=== PATIENT | female | born 1990 | race Caucasian/White ===

== ENCOUNTER 2018-04-05 20:43 | Emergency (ER) | payer MEDICAID ==
[~2018-04-05] VITALS: Ht 165.1 cm; Wt 54.4 kg
--- NOTE | 2018-04-05 21:40 | NUR ---
Dr. Gutierrez at bedside for [facility]SE.
[2018-04-05] MEDS ORDERED: IBUPROFEN 600 MG TABLET PO ONE (22:00)
[2018-04-05] MEDS ORDERED: ACETAMINOPHEN 325 MG TABLET PO ONE (22:00)
[2018-04-05] MEDS ORDERED: IBUPROFEN 600 MG TABLET ONE (22:08)
[2018-04-05] MEDS ORDERED: ACETAMINOPHEN 325 MG TABLET ONE (22:08)
--- NOTE | 2018-04-05 22:10 | NUR ---
Pt refused medications, reports they just want to leave and go somewhere else, requesting the discharge paperwork. notified.
--- NOTE | 2018-04-05 22:14 | NUR ---
Patient discharged to home in stable conditon. Written and verbal after care instructions given. Patient verbalizes understanding of instructions. Patient ambulated out of ER with steady gait, no acute signs of distress, VSS, all belongings taken.
[2018-04-05 22:23] VITALS: BP 117/80
== END 2018-04-05 22:15 | disposition home or self-care (01) ==
LOC: ER 20:52
DX: R51 Headache (principal); J32.9 Chronic sinusitis, unspecified
CPT/HCPCS: 99281; A4663

== ENCOUNTER 2021-05-12 02:56 | Emergency (ER) | payer MEDICAID ==
[~2021-05-12] VITALS: Ht 170.2 cm; Wt 54.4 kg
[2021-05-12] MEDS ORDERED: IV NORMAL SALINE 1000 ML BAG IV ONE ×2 (03:30→04:15)
[2021-05-12 03:47] LABS: HEMATOCRIT 35.4 % (31.2-41.9); MEAN CORPUSCULAR HEMOGLOBIN 28.4 uug (24.7-32.8); MEAN CORPUSCULAR VOLUME 85.9 fL (75.5-95.3); PLATELET COUNT (AUTO) 228 K/uL (179-408)
[2021-05-12 04:00] LABS: ALANINE AMINOTRANSFERASE 19 U/L (14-59); ALKALINE PHOSPHATASE 37 U/L (50-136); ASPARTATE AMINOTRANSFERASE 9 U/L (15-37); BILIRUBIN,DIRECT 0.1 mg/dL (0.0-0.2); BILIRUBIN,TOTAL 0.5 mg/dL (0.2-1.0); CARBON DIOXIDE 26 mmol/L (21-32); CHLORIDE 103 mmol/L (98-107); CREATININE 0.5 mg/dL (0.6-1.3); GLUCOSE 83 mg/dL (74-106); POTASSIUM 3.7 mmol/L (3.5-5.1); TOTAL PROTEIN, SERUM 6.6 g/dL (6.4-8.2); UREA NITROGEN, BLOOD 14 mg/dL (7-18)
[2021-05-12 04:28] LABS: *BILIRUBIN,URIN NEGATIVE (NEGATIVE); *BLOOD, URINE NEGATIVE (NEGATIVE); *COLOR,URINE YELLOW (YELLOW); *KETONES,URINE NEGATIVE (NEGATIVE); *UROBILINOGEN,URINE 0.2 E.U./dl (NORMAL); LEUKOCYTE ESTERASE ,URINE TRACE (NEGATIVE); NITRITE, URINE NEGATIVE (NEGATIVE); UGLUCOSE NEGATIVE (NEGATIVE)
[2021-05-12 04:36] LABS: *CLARITY,URINE HAZY (CLEAR)
[2021-05-12 04:38] LABS: BACTERIA,URINE FEW /HPF (NONE SEEN); RBC,URINE 0-3 /HPF (0-3); SQUAMOUS EPITHELIAL CELL,UR MANY /HPF (NONE SEEN)
[2021-05-12 04:40] LABS: *URINE HCG, QUAL NEGATIVE (NEGATIVE)
[2021-05-12] MEDS ORDERED: CEFTRIAXONE 1 G in IV DEXTROSE 5% 50 ML IV ONE (05:00)
[2021-05-12] MEDS ORDERED: METRONIDAZOLE 500 MG/NS 100 ML PIGGYBACK IV ONE (05:00)
[2021-05-12] MEDS ORDERED: DOXYCYCLINE HYCLATE 100 MG TABLET PO ONE (05:00)
[2021-05-12] MEDS ORDERED: KETOROLAC TROMETHAMINE 30 MG INJ IVP ONE (05:00)
[2021-05-12] MEDS ORDERED: KETOROLAC TROMETHAMINE 30 MG INJ ONE (05:07)
[2021-05-12] MEDS ORDERED: DOXYCYCLINE HYCLATE 100 MG TABLET ONE (05:17)
[2021-05-12] MEDS ORDERED: CEFTRIAXONE /D5W 50ML IVPB **ER PYXIS IV ONE (05:18)
[2021-05-12] MEDS ORDERED: METRONIDAZOLE 500 MG/NS 100ML 100 ML IV ONE (05:18)
[2021-05-12] MEDS ORDERED: METR-147 PO (05:59)
[2021-05-12] MEDS ORDERED: DOXY100T2 PO (05:59)
[2021-05-12] MEDS ORDERED: ONDA4TAB11 PO (06:10)
[2021-05-12] MEDS ORDERED: PANTOPRAZOLE SODIUM 40 MG VIAL ONE (06:14)
[2021-05-12] MEDS ORDERED: ONDANSETRON 4 MG/2 ML VIAL ONE (06:14)
[2021-05-12] MEDS ORDERED: ONDANSETRON 4 MG/2 ML VIAL IV ONE (06:15)
[2021-05-12] MEDS ORDERED: PANTOPRAZOLE SODIUM 40 MG VIAL IV ONE (06:15)
[2021-05-12 07:04] VITALS: BP 102/70
[2021-05-14 15:07] LABS: *GC NAA Negative (Negative); *TRIC.VAG. NAA Negative (Negative)
== END 2021-05-12 07:05 | disposition home or self-care (01) ==
LOC: ER 03:02
DX: N73.9 Female pelvic inflammatory disease, unspecified (principal); R55 Syncope and collapse; Z97.5 Presence of (intrauterine) contraceptive device; Z82.49 Family history of ischemic heart disease and other diseases of the circulatory system; S80.212A Abrasion, left knee, initial encounter; S80.211A Abrasion, right knee, initial encounter; W18.39XA Other fall on same level, initial encounter; Y93.01 Activity, walking, marching and hiking; Y92.89 Other specified places as the place of occurrence of the external cause
CPT/HCPCS: 36415; 70450; 76856; 80048; 80076; 81001; 83605; 84702; 84703; 85025; 85730; 87491; 93005; 96361; 96365; 96367; 96375; 99285; C9113; J0696; J1885; J2405; J3490; A4663; J7030